=== PATIENT | female | born 1975 | race Hispanic/Latino ===

== ENCOUNTER 2020-03-01 10:09 | Outpatient (CLI) | payer OTHER ==
--- NOTE | 2020-03-01 10:37 | ULT ---
Exam: Transabdominal and endovaginal pelvic ultrasound HISTORY:Bleeding COMPARISON: None TECHNIQUE: Transabdominal and endovaginal imaging of the pelvis is performed. Ovaries are interrogate d with grayscale, color flow, Doppler imaging and spectral wave form analysis FINDINGS: Uterus: No myometrial masses. Uterus measurin.4 x 4.2 x 9.3 cm. Endometrium: Limited evaluation. Endometrium diameter: 0.8 cm cm. 3.7 x 3.0 x 3.6 cm anechoic focus in the cervix may represent a large nabothian cyst. Free fluid: None Right ovary: Normal echotexture Right ovary measurement: 3.0 x 2.5 x 2.9 cm Left ovary: Not appreciated Left ovary measurements: Not applicable Ovarian Doppler: There is vascular flow to the right ovary. IMPRESSION: 1. Large anechoic focus in the cervix may represent a nabothian cyst. 2. Limited evaluation of the endometrium. Further interrogation with sonohysterogram or pelvic MRI if clinically warranted.
== END 2020-03-01 10:10 | disposition home or self-care (01) ==
LOC: BICULT 10:09
PROVIDERS: ATTEND Nurse Practitioner Family
DX: N93.9 Abnormal uterine and vaginal bleeding, unspecified (principal)
CPT/HCPCS: 76856